=== PATIENT | female | born 1990 | race Caucasian/White ===

== ENCOUNTER 2024-02-06 06:58 | Day surgery (SDC) | payer OTHER, SELFPAY ==
[2024-02-06 09:28] VITALS: BMI 26.7
[2024-02-06 09:35] VITALS: BMI 26.7
[2024-02-06 09:36] VITALS: BP 120/73
[2024-02-06 09:53] LABS: HCG, Urine Qualitative Screen Negative
[2024-02-06 13:35] VITALS: BP 125/72
[2024-02-06 13:46] VITALS: BP 128/79
[2024-02-06 13:55] VITALS: BP 121/70
[2024-02-06 14:05] VITALS: BP 125/72
--- NOTE | 2024-02-06 16:54 | OR.RPT ---
Operative Report
Operative Report
Date of procedure: February 06, 2024
Preoperative diagnosis vaginal lesion
Postop diagnosis: Same pending final pathology
Procedure: Exam under anesthesia with vaginal biopsies
Anesthesia: Monitored anesthetic care
Surgeon: Davi Quijano
Procedure in detail: I was called to the operating room by Dr. Sohail Prescott. This patient is brought to the operating room for evaluation with D&C hysteroscopy as well as possible vaginal biopsies. 33-year-old G0 with LMP 01/2024 (condoms),
presents for hysteroscopy, dilation and curettage with MyoSure and vaginal biopsy. The patient has longstanding history ofirregular bleeding, multiple ultrasounds which have not identified any significant bnormality except for small fibroid.
Endometrial biopsies have been normal. At last visit, she was also noted to have multiple vaginal polyps. This situation was reviewed with me on phone and I recommended the polyps to be biopsied and in addition, the patient will undergo a
hysteroscopy and D and C in the same operative interval.
Upon arrival to the operating room, exam under anesthesia was performed, I scrubbed and, external genitalia including anus ureter and vulva were normal, distal vagina is unremarkable cervix is unremarkable in the posterior fornix there is an
irregularity approximately 2 cm wide with a 1 cm thick which is almost a cobblestone appearance, on the left fornix there is a blue circular dot suggestive of endometriosis. I performed the rectovaginal examination and the rectal exam is completely
suggestive of smooth mucosa. The thinning thickening can be appreciated by the rectal exam involving posterior cul-de-sac otherwise there is no other fixation to the sidewall present. I recommended performing vaginal biopsies from left right and
mid posterior fornix. On the left blue lesion after the biopsy there was dark chocolate colored fluid suggestive of endometriosis clinically this was not present on the biopsy from the other lesions., Indeed those lesions were somewhat more
fibrotic. I will await the results of the biopsy and have the patient follow-up with me in examination in the office. I did recommend that we have an MRI of the pelvis performed if it has not been done up to this point. Counts of laps instruments
and needle was correct x 2. I was present and scrubbed for entire procedure as dictated above.
== END 2024-02-06 14:16 | disposition home or self-care (01) ==
LOC: SDS 06:58
PROVIDERS: ATTENDING PHYSICIAN Obstetrics & Gynecology
DX: N89.8 Other specified noninflammatory disorders of vagina (principal); N85.8 Other specified noninflammatory disorders of uterus; N84.2 Polyp of vagina
CPT/HCPCS: 58558; 11104; 88305; 81025; 88341; 88342

== ENCOUNTER → 2024-06-28 06:33 | Outpatient (REF) | payer OTHER, SELFPAY | LOC: MRI 3T 06:33 | PROVIDERS: ATTENDING PHYSICIAN Physician Assistant Medical; FAMILY PHYSICIAN Internal Medicine | DX: M54.12 Radiculopathy, cervical region (principal); R53.1 Weakness | CPT/HCPCS: 72141 ==